=== PATIENT | female | born 1985 | race Two or more races ===

== ENCOUNTER 2016-12-17 07:24 | Emergency (ER) | payer BC ==
[~2016-12-17] VITALS: Ht 170.2 cm; Wt 65.8 kg
--- NOTE | 2016-12-17 07:31 | NUR ---
"VOMITING/ABD PAIN X1 MONTH; ON FLAGYL/PROTONIX/ALDACTONE" "WOKE UP WIT RT SIDE NECK SWOLLEN"; DENIES TRAUMA
--- NOTE | 2016-12-17 07:45 | NUR ---
URINE SAMPLE COLLECTED SENT TO LAB
--- NOTE | 2016-12-17 07:50 | NUR ---
RAC #20 IV ACCESS BLOOD SAMPLE COLLECTED SENT TO LAB
[2016-12-17 08:03] LABS: BASOPHILS % (AUTO) 0.3 % (0.0-2.0); EOSINOPHILS # (AUTO) 0.1 /CMM (0.0-0.7); EOSINOPHILS % (AUTO) 1.5 % (0.0-6.0); HEMATOCRIT 47 % (33-45); HEMOGLOBIN 15.6 g/dL (11.5-14.8); LYMPHOCYTES # (AUTO) 1.5 /CMM (0.8-4.8); LYMPHOCYTES % (AUTO) 23.6 % (20.0-44.0); MEAN CORPUSCULAR HEMOGLOBIN 30 PG (26.0-33.0); MEAN CORPUSCULAR HGB CONC 33 g/dl (31.0-36.0); MEAN CORPUSCULAR VOLUME 89 fL (82-100); MONOCYTES # (AUTO) 0.4 /CMM (0.1-1.30); MONOCYTES % (AUTO) 6.9 % (2.0-12.0); NEUTROPHILS # (AUTO) 4.4 /CMM (1.8-8.9); NEUTROPHILS % (AUTO) 67.7 % (43.0-81.0); PLATELET COUNT (AUTO) 308 /CMM (150-450); RDW COEFFICIENT OF VARIATION 12.3 (11.5-15.0); RED BLOOD CELL COUNT(AUTO) 5.28 MIL/uL (4.0-5.2); WHITE BLOOD COUNT (AUTO) 6.5 K/uL (4.3-11.0)
[2016-12-17 08:05] LABS: APPEARANCE,URINE SL CLOUDY (CLEAR); BILIRUBIN,URINE 1+ (NEGATIVE); BLOOD, URINE TRACE-INTA Ery/uL (NEGATIVE); COLOR,URINE YELLOW (YELLOW); KETONES,URINE TRACE (NEGATIVE); LEUKOCYTE ESTERASE ,URINE TRACE (NEGATIVE); NITRITE, URINE NEGATIVE (NEGATIVE); PH,URINE 5.5 (5.0-8.0); PROTEIN,URINE NEGATIVE (NEGATIVE); UGLUCOSE NEGATIVE (NEGATIVE); UROBILINOGEN,URINE 0.2 EU/dL (0.2)
[2016-12-17 08:11] LABS: PREGNANCY TEST URINE QUAL NEGATIVE (NEGATIVE)
[2016-12-17 08:14] LABS: CALCIUM, SERUM 9.4 mg/dL (8.5-10.1)
[2016-12-17 08:16] LABS: BACTERIA,URINE 2+ /HPF (None Seen)
[2016-12-17 08:20] LABS: ALBUMIN 4.3 g/dL (3.4-5.0); BILIRUBIN,DIRECT 0.1 mg/dL (0.0-0.2); BILIRUBIN,TOTAL 0.4 mg/dL (0.2-1.0); TOTAL PROTEIN, SERUM 8.1 g/dL (6.4-8.2)
[2016-12-17 08:28] LABS: T4 (THYROXINE) 14.2 ug/dL (4.7-13.3); THYROID STIMULATING HORMONE 0.604 uIU/mL (0.358-3.74)
--- NOTE | 2016-12-17 09:00 | NUR ---
IV removed. Catheter intact and site benign. Pressure and 4x4 applied to site. No bleeding noted.
--- NOTE | 2016-12-17 09:00 | NUR ---
Patient discharged to home in stable condition. Written and verbal after care instructions given. Patient verbalizes understanding of instruction.
[2016-12-17 09:03] VITALS: BP 130/78
== END 2016-12-17 09:10 | disposition home or self-care (01) ==
LOC: ER 07:26
DX: E86.0 Dehydration (principal); Z90.89 Acquired absence of other organs; R10.9 Unspecified abdominal pain
CPT/HCPCS: 36415; 80048-TC; 80076-TC; 81000-TC; 83690-TC; 84436-TC; 84443-TC; 84480; 84703-TC; 85025-TC; 87086-TC; A4606; J2405; J3490; J7030; Z7610

== ENCOUNTER 2018-01-05 09:24 | Emergency (ER) | payer BC ==
[~2018-01-05] VITALS: Ht 167.6 cm; Wt 56.2 kg
--- NOTE | 2018-01-05 09:45 | NUR ---
Heavy menstrual bleeding x 3 days, 1 pad every 2 hours. 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 AAOX3, VSS. DENIES ABD PAIN, N/V OR ANY OTHER DISCOMFORT @ THIS TIME. PT SEEN & EVAL'D BY DR. BANKS. WILL CONT TO MONITOR.
--- NOTE | 2018-01-05 09:52 | NUR ---
URINE COLLECTED & SENT TO LAB.
[2018-01-05 10:08] LABS: BASOPHILS % (AUTO) 0.6 % (0.0-2.0); EOSINOPHILS % (AUTO) 0.5 % (0.0-6.0); HEMATOCRIT 43 % (33-45); HEMOGLOBIN 14.7 g/dL (11.5-14.8); LYMPHOCYTES # (AUTO) 1.3 /CMM (0.8-4.8); LYMPHOCYTES % (AUTO) 20.1 % (20.0-44.0); MEAN CORPUSCULAR HGB CONC 34 g/dl (31.0-36.0); MEAN CORPUSCULAR VOLUME 90 fL (82-100); MONOCYTES # (AUTO) 0.2 /CMM (0.1-1.30); MONOCYTES % (AUTO) 3.9 % (2.0-12.0); NEUTROPHILS # (AUTO) 4.8 /CMM (1.8-8.9); NEUTROPHILS % (AUTO) 74.9 % (43.0-81.0); PLATELET COUNT (AUTO) 332 /CMM (150-450); RDW COEFFICIENT OF VARIATION 11.5 (11.5-15.0); RED BLOOD CELL COUNT(AUTO) 4.82 MIL/uL (4.0-5.2); WHITE BLOOD COUNT (AUTO) 6.3 K/uL (4.3-11.0)
[2018-01-05 10:46] VITALS: BP 122/77
== END 2018-01-05 10:47 | disposition home or self-care (01) ==
LOC: ER 09:26
DX: N93.8 Other specified abnormal uterine and vaginal bleeding (principal); F32.9 Major depressive disorder, single episode, unspecified; Z90.89 Acquired absence of other organs
CPT/HCPCS: 36415; 84702-TC; 84703-TC; 85025-TC; A4606; Z7610